=== PATIENT | female | born 1960 | race Caucasian/White ===

== ENCOUNTER 2023-05-24 10:34 | Outpatient (REF) | payer MEDICARE, MEDICAID, SELFPAY ==
[2023-05-24 14:37] LABS: MANUAL DIFF FLAG NO
[2023-05-24 14:44] LABS: Basophils Absolute Auto 0.1 X10*3/uL (0.0-0.2); Basophils Percent Auto 1.6 % (0-2); Eosinophils Absolute Auto 0.4 X10*3/uL (0.0-0.4); Hematocrit 44.3 % (37.0-47.0); Hemoglobin 14.1 g/dl (12.0-16.0); Imm Gran Abs Auto 0.01 X10*3/uL (0.00-0.03); Imm Gran Pct Auto 0.2 % (0.0-0.4); Lymphocytes Absolute Auto 1.3 X10*3/uL (1.2-4.9); Lymphocytes Percent Auto 23.2 % (20-40); Mean Corpuscular HGB Conc 31.8 g/dl (31.0-35.0); Mean Corpuscular Hemoglobin 29.3 pg (27.0-33.0); Mean Corpuscular Volume 92.1 fL (80.0-98.0); Mean Platelet Volume 10.6 fL (9.4-12.3); Monocytes Absolute Auto 0.4 X10*3/uL (0.1-1.2); Monocytes Percent Auto 7.7 % (2-11); Neutrophils Absolute Auto 3.3 x10*3/uL (2.0-8.3); Neutrophils Percent Auto 60.3 % (45-73); Platelet Count 310 X10*3/uL (160-400); Red Blood Count 4.81 X10*6/uL (4.20-5.50); Red Cell Distribution Width 12.3 % (11.0-16.0); White Blood Count 5.6 X10*3/uL (4.8-10.8)
[2023-05-24 14:51] LABS: C Reactive Protein 2.37 mg/dL (< or = 0.50)
[2023-05-24 15:43] LABS: Erythrocyte Sedimentation Rate 20 MM/HR (0-20)
== END 2023-05-24 10:35 | disposition home or self-care (01) ==
LOC: HO.CHCLDS 10:34
PROVIDERS: Visit Provider Internal Medicine
DX: R22.0 Localized swelling, mass and lump, head (principal)
CPT/HCPCS: 36415; 85025; 85652; 86140

== ENCOUNTER 2024-12-13 08:30 | Outpatient (REF) | payer OTHER, SELFPAY ==
--- NOTE | ~2024-12-13 | XR_ITS ---
EXAMINATION: XR KNEE, RIGHT CLINICAL INFORMATION: chronic knee pain COMPARISON: None available. TECHNIQUE: AP and lateral views of the right knee. FINDINGS: Joint space narrowing involving medial compartment with sclerosis along the articular surface of the medial tibial plateau. No acute cortical disruption or malalignment. No suprapatellar bursa joint effusion. No lytic or blastic lesions. XR/XR knee RT 2V IMPRESSION: Mild medial compartment osteoarthrosis. Electronically signed by: Woo Florentino MD 12/13/2024 09:23 AM EDT
--- NOTE | ~2024-12-13 | XR_ITS ---
EXAMINATION: XR LUMBOSACRAL SPINE CLINICAL INFORMATION: back sprain COMPARISON: None available. TECHNIQUE: AP and lateral views FINDINGS: No acute cortical disruption or malalignment. No lytic or blastic lesions. Small marginal osteophyte formation L3 and L4. Vascular complications. Dystrophic calcifications left lower pelvis. Vascular clips right upper quadrant abdomen. XR/XR lumbar spine 2-3V IMPRESSION: Mild multilevel spondylosis without acute fracture or listhesis. Probable calcified uterine fibroid. Status post laparoscopic cholecystectomy. Electronically signed by: Woo Florentino MD 12/13/2024 09:18 AM EDT
[2024-12-13 10:18] LABS: MANUAL DIFF FLAG NO
[2024-12-13 10:32] LABS: Basophils Absolute Auto 0.1 X10*3/uL (0.0-0.2); Basophils Percent Auto 1.5 % (0-2); Eosinophils Absolute Auto 0.3 X10*3/uL (0.0-0.4); Eosinophils Percent Auto 6.1 % (0-4); Hemoglobin 13.6 g/dl (12.0-16.0); Imm Gran Abs Auto 0.01 X10*3/uL (0.00-0.03); Imm Gran Pct Auto 0.2 % (0.0-0.4); Lymphocytes Absolute Auto 1.7 X10*3/uL (1.2-4.9); Mean Corpuscular HGB Conc 33.2 g/dl (31.0-35.0); Mean Corpuscular Hemoglobin 29.7 pg (27.0-33.0); Mean Corpuscular Volume 89.5 fL (80.0-98.0); Mean Platelet Volume 10.2 fL (9.4-12.3); Monocytes Absolute Auto 0.4 X10*3/uL (0.1-1.2); Monocytes Percent Auto 8.2 % (2-11); Neutrophils Absolute Auto 2.8 x10*3/uL (2.0-8.3); Platelet Count 276 X10*3/uL (160-400); Red Blood Count 4.58 X10*6/uL (4.20-5.50); Red Cell Distribution Width 12.1 % (11.0-16.0); White Blood Count 5.4 X10*3/uL (4.8-10.8)
[2024-12-13 11:08] LABS: Alanine Aminotransferase 18 U/L (0-31); Alkaline Phosphatase 71 U/L (39-117); Anion Gap 12 (12-20); Aspartate Amino Transferase 23 U/L (5-31); Bilirubin Direct 0.1 mg/dL (0.0-0.5); Bilirubin Total 0.3 mg/dL (0.0-1.0); Blood Urea Nitrogen 18 mg/dL (9-16); Calcium 10.3 mg/dL (8.4-10.2); Carbon Dioxide 25 mmol/L (22-29); Chloride 107 mmol/L (96-108); Cholesterol 162 mg/dL (<200); Estimated Glomerular Filt Rate > 60; Glucose Fasting 125 mg/dL (60-99); HDL Cholesterol 34 mg/dL (>40); LDL Cholesterol Calculated 57 mg/dL (<100); Sodium 140 mmol/L (135-145); Total Protein 6.8 g/dL (6.5-8.0); Triglycerides 359 mg/dL (<150)
[2024-12-13 11:18] LABS: Erythrocyte Sedimentation Rate 12 MM/HR (0-20)
[2024-12-13 11:29] LABS: TSH reflex Free T4 1.46 uIU/mL (0.32-4.0); Vitamin D 25-OH Total 31.2 ng/mL (>30)
[2024-12-13 14:08] LABS: Creatinine Urine 162.01 mg/dL; Microalbum/Creatinine Ratio Ur 6.1 ug/mg cr (<30)
== END 2024-12-13 08:31 | disposition home or self-care (01) ==
LOC: HO.HMGCX 08:30
PROVIDERS: PCP Pediatrics; Visit Provider Pediatrics
DX: Z12.11 Encounter for screening for malignant neoplasm of colon (principal); Z71.82 Exercise counseling; Z71.3 Dietary counseling and surveillance; E11.9 Type 2 diabetes mellitus without complications; S33.5XXA Sprain of ligaments of lumbar spine, initial encounter
CPT/HCPCS: 36415; 72100; 73560; 80048; 80061; 80076; 82043; 82306; 82570; 84443; 85025; 85652

== ENCOUNTER → 2024-12-13 08:43 | Outpatient (BNV) | payer MEDICARE, MEDICAID, SELFPAY | PROVIDERS: PCP Pediatrics; Visit Provider Radiology Diagnostic Radiology | DX: M25.78 Osteophyte, vertebrae (principal); M17.11 Unilateral primary osteoarthritis, right knee | CPT/HCPCS: 72100; 73560 ==